=== PATIENT | female | born 1950 | race Caucasian/White ===

== ENCOUNTER 2023-12-23 19:19 | Emergency (ER) | payer MEDICARE, OTHER ==
--- NOTE | 2023-12-23 19:50 | ED Physician Documentation ---
PD HPI CHEST PAIN - Stated complaint Stated Complaint: CHEST PX/PULIDO/LT ARM NUMB - Chief complaint Chief Complaint: Cardiac - History obtained from History obtained from: Patient - Additional information Additional information: HPI from patient. Patient complains of chest tightness since 4:30 PM today. There was no inciting event/circumstances, and there are no exacerbating nor ameliorating factors. Appropriately feeling her concern regarding the symptom is history of 2 cardiac stents placed in 1997, with the another stent placed just last month. She was evaluated in an emergency department in [place] for chest pain last month; patient's description is consistent with NSTEMI, as she says that she was admitted overnight and taken the following day to the [facility] where a stent was placed.Patient has been living in [place], but recently relocated to [facility] and is currently staying with her daughter who lives on [address]. Patient also complains of bilateral temporal headache and high blood pressure readings at home. Patient had not been measuring her blood pressure of late, but the headache prompted her to do so tonight and the result on her home blood pressure cuff was 196/120. Patient had been on 3 different blood pressure medications (Micardis, atenolol, amlodipine), but, per patient, was advised by one of her doctors to stop all 3 of these medications due to episodic lightheadedness/near syncopal episodes. The patient says that the concern was that her blood pressures were getting too low, but it does not sound like she had confirmatory blood pressure readings. Also, the patient is taking daily baby aspirin and has been taking Brilinta which was prescribed after she was discharged in the hospital last month in [place]. Patient tells me that she was supposed to take at least 2 months of Brilinta, but after running out of the initial prescription recently, she did not get a refill although 1 was available (it is not clear why she did not do so). Patient denies nausea, vomiting, shortness of breath, diaphoresis, leg swelling. Review of Systems Constitutional: reports: Reviewed and negative Cardiac: reports: Chest pain / pressure. denies: Palpitations, Pedal edema, Calf pain Respiratory: reports: Reviewed and negative GI: reports: Reviewed and negative Musculoskeletal: denies: Extremity swelling Neurologic: reports: Headache. denies: Generalized weakness, Focal weakness, Numbness, Confused, Altered mental status PD PAST MEDICAL HISTORY - Past Medical History Past Medical History: Yes Cardiovascular: Hypertension, Other Respiratory: None Neuro: None Endocrine/Autoimmune: None GI: None BONE CRUSHER: None : None HEENT: None Psych: None Musculoskeletal: None Derm: None - Past Surgical History Past Surgical History: Yes /BONE CRUSHER: section Cardiovascular: Angioplasty - Present Medications Home Medications: Ambulatory Orders Medication Instructions Recorded Confirmed Aspirin [Aspirin Regimen] 81 mg PO DAILY 12/24/23 12/24/23 Ticagrelor [Brilinta] 90 mg PO DAILY 12/24/23 12/24/23 - Allergies Allergies/Adverse Reactions: Allergies Allergy/AdvReac Type Severity Reaction Status Date / Time Aiduify-FLY-DrN Reductase AdvReac Cramps Verified 12/23/23 19:41 Inhibitor - Social History Does the pt smoke?: No Smoking Status: Never smoker Does the pt drink ETOH?: Yes Does the pt have substance abuse?: No - Immunizations Immunizations are current?: Yes - POLST Patient has POLST: No PD ED PE NORMAL - Vitals Vital signs reviewed: Yes - General General: Alert and oriented X 3, No acute distress, Well developed/nourished - HEENT HEENT: PERRL, EOMI, Moist mucous membranes - Neck Neck: Supple, no meningeal sign - Cardiac Cardiac: RRR, No murmur, No rub - Respiratory Respiratory: No respiratory distress, Clear bilaterally - Abdomen Abdomen: Soft, Non tender - Extremities Extremities: No edema - Neuro Neuro: Alert and oriented X 3, superintendent transportation 2-12 intact, No motor deficit, No sensory deficit, Normal speech Eye Opening: Spontaneous Motor: Obeys Commands Verbal: Oriented GCS Score: 15 Results - Vitals Vitals: Vital Signs - 24 hr 12/23/23 12/23/23 12/24/23 20:18 22:00 00:00 Heart Rate 70 81 84 Respiratory 19 19 19 Rate Blood Pressure 195/102 H 167/92 H 173/82 H O2 Saturation 99 99 99 12/24/23 12/24/23 02:00 04:00 Heart Rate 81 70 Respiratory 18 18 Rate Blood Pressure 149/84 H 167/85 H O2 Saturation 98 98 Oxygen O2 Source Room air - EKG (time done) No standard instances EKG releavant findings:: EKG personally interpreted by author of this note. Relevant findings are: Rate: Rate (enter#) (71) Rhythm: NSR [place]: Normal Intervals: Normal [place] QRS: Normal Ischemia: ST depression (V4, V5), T wave inversion (V2-V5) Compare to prior EKG: Old EKG unavailable - Labs Labs: Laboratory Tests 12/23/23 12/23/23 12/23/23 19:55 19:55 21:59 WBC 6.2 RBC 4.34 Hgb 11.1 L Hct 37.6 MCV 86.6 MCH 25.6 L MCHC 29.5 L RDW 14.0 Plt Count 324 MPV 9.4 Neut # (Auto) 3.7 Lymph # (Auto) 2.0 [place] # (Auto) 0.3 Eos # (Auto) 0.1 Baso # (Auto) 0.0 Absolute Nucleated RBC 0.00 Nucleated RBC % 0.0 Sodium 137 Potassium 4.5 Chloride 102 Carbon Dioxide 27 Anion Gap 8.0 BUN 18 Creatinine 1.2 Estimated GFR (MDRD) 44 L Glucose 129 H Calcium 9.1 Total Bilirubin 0.4 AST 10 ALT 7 L Alkaline Phosphatase 75 Troponin I High Sens 81.2 H* 713.2 H* Total Protein 6.7 Albumin 4.0 Globulin 2.7 Albumin/Globulin Ratio 1.5 Lipase 75 12/24/23 01:04 WBC RBC Hgb Hct MCV MCH MCHC RDW Plt Count MPV Neut # (Auto) Lymph # (Auto) [place] # (Auto) Eos # (Auto) Baso # (Auto) Absolute Nucleated RBC Nucleated RBC % Sodium Potassium Chloride Carbon Dioxide Anion Gap BUN Creatinine Estimated GFR (MDRD) Glucose Calcium Total Bilirubin AST ALT Alkaline Phosphatase Troponin I High Sens 1639.7 H* Total Protein Albumin Globulin Albumin/Globulin Ratio Lipase - Rads (name of study) chest xray Relevant Findings:: Prelim report reviewed, See rad report CTH Relevant Findings:: Prelim report reviewed, See rad report PD Medical Decision Making - ED course Complexity details: reviewed results, re-evaluated patient, considered differential, d/w patient ED course: Unremarkable CBC, ER abdominal panel. Chest x-ray interpreted by radiologist as hazy left basilar opacity, possibly atelectasis or infiltrate. However, patient's age and PE do not suggest infectious issue such as pneumonia; this is likely an incidental finding. ST depressions and T wave inversions on EKG as noted, above. Unfortunately, patient's initial troponin is elevated with result of 81, and a 2-hour repeat is 713, with a subsequent 2-hour repeat resulting 1639. The first troponin is suggestive of NSTEMI, and the subsequent repeat levels seem to confirm this. Calls were placed to several [facility] to try to find bed at appropriate facility (to include cardiology services). Eventually, I was put in touch with the on-call hospitalist for [facility] in [place] where there is available bed. Hospitalist (Dr. Pierce) accepts patient for transfer to [facility]. Before transfer arrangements were undertaken, I then also spoke with the mold mover on-call (Dr. Keys) at [facility], and he agrees transfer is appropriate. Furthermore, he recommends initiating heparin drip and giving 600 mg p.o. Plavix. These medications are ordered and administered. Note that shortly after my initial evaluation this patient, she reported resolution of her headache without any intervention, and the headache did not recur during remainder of her ED stay. Similarly, her chest discomfort resolved almost immediately after my initial evaluation without any intervention, and also did not recur during remainder of ED stay. Departure - Departure Disposition: 02 Transfer Acute Care Hosp Clinical Impression: NSTEMI (non-ST elevated myocardial infarction) Condition: Stable Discharge Date/Time: 12/24/23 04:02
[2023-12-23 20:03] LABS: BASOPHILS % (AUTO) 0.5 %; EOSINOPHILS # (AUTO) 0.1 10^3/uL (0.0-0.7); EOSINOPHILS % (AUTO) 2.1 %; HCT - HEMATOCRIT 37.6 % (37.0-47.0); HGB - HEMOGLOBIN 11.1 g/dL (12.0-16.0); LYMPHOCYTES % (AUTO) 32.5 %; MEAN CORPUSCULAR HEMOGLOBIN 25.6 pg (27.0-31.0); MEAN CORPUSCULAR HGB CONC 29.5 g/dL (32.0-36.0); MEAN CORPUSCULAR VOLUME 86.6 fL (81.0-99.0); MEAN PLATELET VOLUME 9.4 fL (7.9-10.8); MONOCYTES # (AUTO) 0.3 10^3/uL (0.0-1.0); MONOCYTES % (AUTO) 4.9 %; NEUTROPHILS # (AUTO) 3.7 10^3/uL (1.5-6.6); NEUTROPHILS % (AUTO) 59.8 %; PLT - PLATELET COUNT 324 10^3/uL (130-450); RED BLOOD COUNT 4.34 10^6/uL (4.20-5.40); WHITE BLOOD COUNT 6.2 x10^3/uL (4.8-10.8)
[2023-12-23 20:18] LABS: ALBUMIN/GLOBULIN RATIO 1.5 (1.0-2.2); BILIRUBIN,TOTAL 0.4 mg/dL (0.2-1.0); CALCIUM 9.1 mg/dL (8.5-10.3); CREATININE 1.2 mg/dL (0.6-1.3); POTASSIUM 4.5 mmol/L (3.5-4.5); TOTAL PROTEIN 6.7 g/dL (6.4-8.9)
[2023-12-23 20:23] LABS: TROPONIN I HIGH SENSITIVITY 81.2 ng/L (2.3-14.8)
--- NOTE | 2023-12-23 21:22 | XRAY Report ---
PROCEDURE: Chest 1V INDICATIONS: Chest pain TECHNIQUE: One view of the chest was acquired. COMPARISON: None. FINDINGS: Surgical changes and devices: Coronary stent. Lungs and pleura: Hazy left basilar opacity. Mediastinum: Mediastinal contours appear normal. Heart size is normal. Bones and chest wall: No suspicious bony lesions. Overlying soft tissues appear unremarkable. IMPRESSION: Asymmetric basilar opacity, which could represent atelectasis or infection. Reviewed by: Twan Garcia MD on 12/23/2023 9:21 PM PDT Approved by: Twan aGrcia MD on 12/23/2023 9:21 PM PDT Station ID: [id number]
--- NOTE | 2023-12-23 21:27 | CT Report ---
PROCEDURE: Head WO INDICATIONS: PULIDO TECHNIQUE: Noncontrast 4.5 mm thick angled axial sections acquired from the foramen magnum to the vertex. For r adiation dose reduction, the following was used: automated exposure control, adjustment of mA and/or kV according to patient size. COMPARISON: None. FINDINGS: Image quality: Excellent. CSF spaces: Basal cisterns are patent. No extra-axial fluid collections. Ventricles are normal in size and shape. Brain: No midline shift. No intracranial masses or hemorrhage. Beckett-white matter interface is norm al. Skull and face: Calvarium and visualized facial bones are intact, without suspicious lesions. Sinuses: Visualized sinuses and mastoids are clear. IMPRESSION: No acute intracranial pathology. Reviewed by: Twan Garcia MD on 12/23/2023 9:25 PM PDT Approved by: Twan Garcia MD on 12/23/2023 9:25 PM PDT Station ID: [id number]
[2023-12-24] MEDS: CLOPIDOGREL 300 MG TABLET PO STA ×2 (01:02→01:52)
[2023-12-24] MEDS: HEPARIN 25000UNITS/500ML (D5W) 25,000 UNIT/500 ML BAG IV SCH (01:58)
[2023-12-24 02:11] VITALS: O2SAT 98
[2023-12-24 04:09] VITALS: BP 167/85
== END 2023-12-24 04:02 | disposition short-term general hospital (02) ==
LOC: ED 19:19
DX: I21.4 Non-ST elevation (NSTEMI) myocardial infarction (principal); R94.31 Abnormal electrocardiogram [ECG] [EKG]; I10 Essential (primary) hypertension; Z79.82 Long term (current) use of aspirin
CPT/HCPCS: 36415; 70450; 71045; 80053; 83690; 84484; 85025; 93005; 96374; 99285; A9270